=== PATIENT | male | born 2000 | race Two or more races ===

== ENCOUNTER 2021-06-24 22:56 | Emergency (ER) | payer OTHER ==
[~2021-06-24] VITALS: Ht 172.7 cm; Wt 61.7 kg
== END 2021-06-25 04:11 ==
LOC: ER 22:56
DX: G24.3 Spasmodic torticollis (principal); M54.2 Cervicalgia; R25.2 Cramp and spasm; Z03.818 Encounter for observation for suspected exposure to other biological agents ruled out